=== PATIENT | female | born 1980 | race Caucasian/White ===

== ENCOUNTER 2018-08-27 12:06 | Inpatient (IN) | payer BC ==
[~2018-08-27] VITALS: Ht 172.7 cm; Wt 74.8 kg
[2018-08-27] MEDS ORDERED: OXYTOCIN/0.9 % SODIUM CHLORIDE 1,000 ML IV SCH (13:06)
[2018-08-27] MEDS ORDERED: LR 1,000 ML IV SCH (13:06)
[2018-08-27 13:14] VITALS: BP_SYST 119
[2018-08-27] MEDS ORDERED: NALBUPHINE HCL 10 MG/ML AMP IVP PRN (13:15)
[2018-08-27] MEDS ORDERED: NALBUPHINE HCL 10 MG/ML AMP IM PRN (13:15)
[2018-08-27] MEDS ORDERED: TERBUTALINE SULFATE 1 MG/ML VIAL SUBCUT ONE (13:15)
[2018-08-27] MEDS ORDERED: DINOPROSTONE 10 MG SUPP VG ONE (13:15)
[2018-08-27 14:33] LABS: BASOPHILS % (AUTO) 0.3 % (0.0-2.0); EOSINOPHILS # (AUTO) 0.1 K/uL (0.0-0.4); EOSINOPHILS % (AUTO) 1.2 % (0.0-4.0); HEMATOCRIT 37.9 % (36-48); HEMOGLOBIN 12.6 g/dL (12.0-16.0); LYMPHOCYTES # (AUTO) 1.7 K/uL (1.0-5.5); LYMPHOCYTES % (AUTO) 27.1 % (20.5-51.5); MEAN CORPUSCULAR HEMOGLOBIN 30 pg (27-31); MEAN CORPUSCULAR HGB CONC 33 % (32-36); MEAN CORPUSCULAR VOLUME 92 fL (79.0-98.0); MONOCYTES # (AUTO) 0.4 K/uL (0.0-1.0); MONOCYTES % (AUTO) 7.3 % (1.7-9.3); NEUTROPHILS # (AUTO) 3.9 K/uL (1.8-7.7); NEUTROPHILS % (AUTO) 64.1 % (40.0-70.0); PLATELET COUNT (AUTO) 189 K/uL (130-430); RED BLOOD CELL COUNT(AUTO) 4.15 MIL/uL (4.2-6.2); RED CELL DISTRIBUTION WIDTH 13.2 % (9.0-15.0); WHITE BLOOD COUNT (AUTO) 6.1 K/uL (4.8-10.8)
[2018-08-27] MEDS ORDERED: MINERAL OIL 30 ML UDC PO ONE (17:38)
[2018-08-27] MEDS ORDERED: FENT2mCg/mL-ROPIVA0.2%/NS EPID 150 ML EP SCH (21:20)
[2018-08-27] MEDS ORDERED: LR 500 ML IV ONE (21:20)
[2018-08-27] MEDS ORDERED: fentaNYL CITRATE/PF 100 MCG/2 ML AMP ONE (21:24)
[2018-08-27] MEDS ORDERED: ROPIVACAINE 0.2% 100 ML ONE (21:25)
[2018-08-28] MEDS ORDERED: OXYTOCIN/0.9 % SODIUM CHLORIDE 1,000 ML IV ONE (02:44)
[2018-08-28] MEDS ORDERED: OXYTOCIN/0.9 % SODIUM CHLORIDE 1,000 ML IV SCH (02:44)
[2018-08-28] MEDS ORDERED: LANOLIN 7 GM OINT. TP PRN (02:45)
[2018-08-28] MEDS ORDERED: ACETAMINOPHEN 325 MG TABLET PO PRN (02:45)
[2018-08-28] MEDS ORDERED: RHO(D) IMMUNE GLOBULIN/MALTOSE 1500 UNITS/1.3 ML (WINHRO) IM PRN (02:45)
[2018-08-28] MEDS ORDERED: SENNOSIDES/DOCUSATE SODIUM 1 TAB TABLET(SENOKOT-S) PO PRN (02:45)
[2018-08-28] MEDS ORDERED: DIPH-TET-PERTUS Vaccine 0.5 ML VIAL (ADACEL) I.M. PRN (02:45)
[2018-08-28] MEDS ORDERED: MEASLES,MUMPS&RUBELLA VACC/PF 12500 UNIT/0.5 ML VIAL SUBQ PRN (02:45)
[2018-08-28] MEDS ORDERED: METHYLERGONOVINE MALEATE 0.2 MG TABLET PO PRN (02:45)
[2018-08-28] MEDS ORDERED: ANUSOL 1 EA SUPP.RECT (PREPARATION H) RC PRN (02:45)
[2018-08-28] MEDS ORDERED: HYDROCORTISONE 0.5%, 28.35 GM TOPICAL CREAM TP PRN (02:45)
[2018-08-28] MEDS ORDERED: OXYCODONE/ACETAMINOPHEN 5-325 TABLET PO PRN ×2 (02:45)
[2018-08-28] MEDS ORDERED: DERMOPLAST SPRAY TP PRN (02:45)
[2018-08-28] MEDS ORDERED: WITCH HAZEL LEAF 1 MED.PAD MED.PAD TP PRN (02:45)
[2018-08-28] MEDS: IBUPROFEN 600 MG TABLET PO SCH ×3 (06:21→17:38)
[2018-08-28] MEDS ORDERED: TEMAZEPAM 15 MG CAPSULE PO PRN (21:00)
[2018-08-29] MEDS: IBUPROFEN 600 MG TABLET PO SCH ×3 (05:32→12:07)
[2018-08-29 07:37] LABS: HEMATOCRIT 31.6 % (36-48); HEMOGLOBIN 10.4 g/dL (12.0-16.0)
[2018-08-29] MEDS: DOCUSATE SODIUM 100 MG CAPSULE PO PRN ×2 (09:27)
== END 2018-08-29 17:39 | disposition home or self-care (01) | DRG 807 ==
LOC: SPU 12:28
PROVIDERS: ADMIT Obstetrics & Gynecology; ATTEND Obstetrics & Gynecology
PROC: 10E0XZZ Delivery of Products of Conception, External Approach (ICD-10-PCS; principal; 2018-08-28)
PROC: 0KQM0ZZ Repair Perineum Muscle, Open Approach (ICD-10-PCS; 2018-08-28)
PROC: 3E0P7VZ Introduction of Hormone into Female Reproductive, Via Natural or Artificial Opening (ICD-10-PCS; 2018-08-28)
PROC: 3E0R3BZ Introduction of Anesthetic Agent into Spinal Canal, Percutaneous Approach (ICD-10-PCS; 2018-08-28)
PROC: 00HU33Z Insertion of Infusion Device into Spinal Canal, Percutaneous Approach (ICD-10-PCS; 2018-08-28)
DX: O70.1 Second degree perineal laceration during delivery (principal); Z37.0 Single live birth; Z3A.39 39 weeks gestation of pregnancy
CPT/HCPCS: 36415; 85018-TC; 85025; 86592; 86886; 86900; 86901; J2590; J2795; J3010; J7120